=== PATIENT | male | born 1990 | race Caucasian/White ===

== ENCOUNTER 2022-12-07 04:03 | Emergency (ER) | payer SELFPAY ==
[~2022-12-07] VITALS: Ht 167.6 cm; Wt 83.0 kg
[2022-12-07 04:25] VITALS: TEMP 98.3; O2SAT 99
[2022-12-07 04:50] LABS: BASOPHILS % 0.2 % (0.0-2.0); EOSINOPHILS % 1.3 % (0.0-5.0); HEMATOCRIT. 45.6 % (42.0-52.0); HEMOGLOBIN. 15.3 g/dL (14.0-18.0); LYMPHOCYTES % 14.9 % (20.0-50.0); MEAN CORPUSCULAR VOLUME 95.4 fL (80.0-94.0); MEAN PLATELET VOLUME 8.5 fl (7.4-10.4); MONOCYTES % 7.4 % (2.0-8.0); NEUTROPHILS % 76.2 % (40.0-76.0); PLATELET 277 x1000/uL (130-400); RED BLOOD CELL COUNT 4.78 mill/uL (4.7-6.1); RED CELL DISTRIBUTION WIDTH 14.1 % (11.6-14.6)
[2022-12-07 05:01] LABS: CHLORIDE 106 mEq/L (98-107)
[2022-12-07] MEDS ORDERED: SODIUM CHLORIDE 0.9% 1000ML BAG (SEPSIS BOLUS) IV ONE (05:45)
[2022-12-07] MEDS ORDERED: KETOROLAC 15MG/ML VIAL IV ONE (06:00)
[2022-12-07] MEDS ORDERED: ONDANSETRON HCL 4MG/2ML INJ IV ONE (06:00)
[2022-12-07 06:19] LABS: CLARITY URINE TURBID (CLEAR); COLOR URINE DARK YELLOW (YELLOW); KETONES URINE TRACE (NEGATIVE); LEUKOCYTE ESTERASE URINE NEGATIVE (NEGATIVE); NITRITE URINE NEGATIVE (NEGATIVE); OCCULT BLOOD URINE 3+ (NEGATIVE); PROTEIN URINE 1+ (NEGATIVE); SPECIFIC GRAVITY URINE 1.042 (1.005-1.030)
[2022-12-07 06:24] VITALS: BP 141/82; RESP 18
[2022-12-07] MEDS ORDERED: TAMSULOSIN HCL 0.4MG SR CAPSULE PO SCH (07:30)
[2022-12-07] MEDS ORDERED: IBUP-2029 MT (07:57)
[2022-12-07] MEDS ORDERED: CEPH500C2 MT (07:57)
[2022-12-07] MEDS ORDERED: TAMS-11 MT (07:57)
[2022-12-07] MEDS ORDERED: ONDA4TAB50 MT (07:57)
[2022-12-07 08:06] VITALS: PULSE 90
== END 2022-12-07 09:05 | disposition home or self-care (01) ==
LOC: ER 04:03
DX: N13.2 Hydronephrosis with renal and ureteral calculous obstruction (principal)
CPT/HCPCS: 99285; 74176; 96374; 96375; 80053; 81003; 83605; 83690; 85025; 87040; 87086; 36415; J1885; J2405; J7030